=== PATIENT | male | born 1945 | race Two or more races ===

== ENCOUNTER 2023-06-26 01:22 | Inpatient (IN) | payer OTHER ==
[2023-06-26] VITALS (7 sets, daily range): BP systolic 129–154; BP diastolic 86–92; TEMP 97–98.4; O2SAT 96–100
[~2023-06-26] VITALS: Ht 170.2 cm; Wt 59.0 kg
[2023-06-26] MEDS ORDERED: IV NS 0.9% 1,000 ML BAG IV ONE (01:30)
[2023-06-26 02:05] LABS: BASOPHILS % (AUTO) 0.3 % (0.0-2.0); HEMATOCRIT 41 % (39-51); HEMOGLOBIN 13.3 g/dL (13.5-17.5); LYMPHOCYTES # (AUTO) 0.9 K/uL (0.8-4.8); LYMPHOCYTES % (AUTO) 14.1 % (20.0-44.0); MEAN CORPUSCULAR HEMOGLOBIN 31 PG (26.0-33.0); MEAN CORPUSCULAR HGB CONC 33 g/dl (31.0-36.0); MEAN CORPUSCULAR VOLUME 96 fL (80-96); MONOCYTES # (AUTO) 0.8 K/uL (0.1-1.30); MONOCYTES % (AUTO) 13.5 % (2.0-12.0); NEUTROPHILS # (AUTO) 4.4 K/uL (1.8-8.9); NEUTROPHILS % (AUTO) 72.1 % (43.0-81.0); PLATELET COUNT (AUTO) 127 K/uL (150-450); RED BLOOD CELL COUNT(AUTO) 4.24 MIL/uL (4.5-6.0); WHITE BLOOD COUNT (AUTO) 6.1 K/uL (4.3-11.0)
[2023-06-26 02:27] LABS: ERYTHROCYTE SEDIMENTATION RATE 14 MM/HR (0-20)
[2023-06-26 02:29] LABS: CALCIUM, SERUM 8.5 mg/dL (8.5-10.1); CARBON DIOXIDE 34 mmol/L (21-32); CHLORIDE 103 mmol/L (98-107); CREATININE 0.9 mg/dL (0.6-1.3); GLUCOSE 123 mg/dL (74-106); POTASSIUM 3.8 mmol/L (3.5-5.1); SODIUM SERUM 141 mmol/L (136-145); UREA NITROGEN, BLOOD 20 mg/dL (7-18)
[2023-06-26 02:30] LABS: INR 1.06 (0.91-1.10); PROTHROMBIN TIME 11.2 SECS (9.2-11.1)
[2023-06-26 02:36] LABS: ALANINE AMINOTRANSFERASE 34 U/L (12-78); ALBUMIN 2.9 g/dL (3.4-5.0); ALKALINE PHOSPHATASE 66 U/L (46-116); ASPARTATE AMINOTRANSFERASE 24 U/L (15-37); BILIRUBIN,DIRECT 0.1 mg/dL (0.0-0.2); BILIRUBIN,TOTAL 0.3 mg/dL (0.2-1.0); TOTAL PROTEIN, SERUM 6.7 g/dL (6.4-8.2)
[2023-06-26 02:42] LABS: APPEARANCE,URINE CLEAR (CLEAR); BILIRUBIN,URINE NEGATIVE (NEGATIVE); BLOOD, URINE NEGATIVE Ery/uL (NEGATIVE); COLOR,URINE YELLOW (YELLOW); KETONES,URINE NEGATIVE (NEGATIVE); LEUKOCYTE ESTERASE ,URINE NEGATIVE (NEGATIVE); NITRITE, URINE NEGATIVE (NEGATIVE); PROTEIN,URINE 3+ mg/dl (NEGATIVE); UGLUCOSE NEGATIVE (NEGATIVE)
[2023-06-26] MEDS ORDERED: ONDANSETRON HCL/PF 4 MG/2 ML VIAL IVP PRN (04:00)
[2023-06-26] MEDS ORDERED: Z GUARD REMEDY 4 OZ OINT TP PRN (04:00)
[2023-06-26] MEDS ORDERED: MAGNESIUM HYDROXIDE 30 ML UDC PO PRN (04:00)
[2023-06-26] MEDS ORDERED: CEFTRIAXONE 1GM BAG (ER ONLY) 1 GM/50 ML PIGGYBACK IV ONE (04:00)
[2023-06-26] MEDS ORDERED: MAG HYDROX/AL HYDROX/SIMETH 30 ML UDC PO PRN (04:00)
[2023-06-26] MEDS ORDERED: ACETAMINOPHEN 325 MG TABLET PO PRN (04:00)
[2023-06-26] MEDS ORDERED: AZITHROMYCIN 500 MG in IV D5W 250 ML IV ONE (04:00)
[2023-06-26] MEDS ORDERED: CEFTRIAXONE 1GM BAG (ER ONLY) 50 ML IV ONE (04:28)
[2023-06-26] MEDS ORDERED: AZITHROMYCIN 500 MG VIAL ONE (05:02)
[2023-06-26] MEDS: IV NS 0.9% 1,000 ML IV PRN (06:14)
[2023-06-26] MEDS: ENOXAPARIN SODIUM 40 MG/0.4 ML DISP.SYRIN SQ SCH (08:27)
[2023-06-26 09:46] LABS: ABG BASE EXCESS 4.8 mmol/L; ABG OXYGEN SATURATION 95.6 % (92.0-98.5); ABG PCO2 61.1 mmHg (35.0-45.0); ABG PH 7.341 (7.350-7.450); ABG PO2 86.1 mmHg (75.0-100.0); ABG TOTAL HEMOGLOBIN 13.3 G/dL (13.5-18.0); AaDO2 70.6 mmHg; COHb 1.1 % (0.5-1.5); MetHb 0.2 % (0.0-1.5); O2Hb 94.4 % (94.0-97.0); SITE, ABG Right Radial; VENT MODE, BG NC 3LPM
[2023-06-26] MEDS: ALBUTEROL HALF STRENGTH 1.25 MG/3 ML VIAL.NEB NEB SCH ×4 (11:30→23:47)
[2023-06-26] MEDS: IPRATROPIUM NEB FS 0.5 MG/2.5 ML AMPUL.NEB NEB SCH ×4 (11:30→23:47)
[2023-06-26] MEDS ORDERED: ASCO-352 PO (14:15)
[2023-06-26] MEDS ORDERED: OLME40TA18 PO (14:15)
[2023-06-26] MEDS ORDERED: SERT100T12 PO (14:15)
[2023-06-26] MEDS ORDERED: ROSU10TA29 PO (14:15)
[2023-06-26] MEDS ORDERED: MEMA10TA PO (14:15)
[2023-06-26] MEDS ORDERED: FERR325T23 PO (14:15)
[2023-06-26] MEDS ORDERED: DIVA500T4 PO (14:15)
[2023-06-26] MEDS ORDERED: OLAN5TAB6 PO (14:15)
[2023-06-26] MEDS ORDERED: DEXL60CA3 PO (14:15)
[2023-06-26] MEDS ORDERED: FISH1CAP16 PO (14:15)
[2023-06-26] MEDS ORDERED: CLON0.2T PO (14:15)
[2023-06-26] MEDS ORDERED: DONE10TA44 PO (14:15)
[2023-06-26] MEDS ORDERED: CARV25TA2 PO (14:15)
[2023-06-26] MEDS ORDERED: METF-440 PO (14:15)
[2023-06-26] MEDS ORDERED: MEGE40TA5 PO (14:15)
[2023-06-26] MEDS ORDERED: CYAN-51 PO (14:15)
[2023-06-26] MEDS: DONEPEZIL 5 MG TABLET PO SCH (15:16)
[2023-06-26] MEDS: ENSURE ENLIVE CHOC 237 ML CAN PO SCH ×2 (15:16→16:03)
[2023-06-26] MEDS ORDERED: CYANOCOBALAMIN 500 MCG TABLET PO SCH ×2 (15:30→18:00)
[2023-06-26] MEDS: LOSARTAN POTASSIUM 50 MG TABLET PO SCH (16:19)
[2023-06-26] MEDS ORDERED: FERROUS SULFATE (325 MG) 325 MG/TAB TABLET PO SCH (17:00)
[2023-06-26] MEDS: DIVALPROEX SODIUM 500 MG TABLET.DR PO SCH (17:03)
[2023-06-26] MEDS: MEMANTINE HCL 5 MG TABLET PO SCH (17:05)
[2023-06-26] MEDS: MEGESTROL ACETATE 40 MG TABLET PO SCH (17:05)
[2023-06-26] MEDS: OLANZAPINE ZYDIS 5 MG TAB.RAPDIS PO SCH (17:05)
[2023-06-26] MEDS ORDERED: ATORVASTATIN 40 MG TABLET PO SCH (18:00)
[2023-06-26] MEDS: CLONIDINE HCL 0.1 MG TABLET PO SCH (21:48)
[2023-06-27] VITALS (13 sets, daily range): BP systolic 103–167; BP diastolic 78–98; TEMP 97.1–98; O2SAT 90–99
[2023-06-27] MEDS: IV NS 0.9% 1,000 ML IV PRN (00:44)
[2023-06-27] MEDS: IPRATROPIUM NEB FS 0.5 MG/2.5 ML AMPUL.NEB NEB SCH ×5 (03:46→20:23)
[2023-06-27] MEDS: ALBUTEROL HALF STRENGTH 1.25 MG/3 ML VIAL.NEB NEB SCH ×5 (03:46→20:23)
[2023-06-27 07:44] LABS: BASOPHILS % (AUTO) 0.2 % (0.0-2.0); EOSINOPHILS # (AUTO) 0.1 K/uL (0.0-0.7); EOSINOPHILS % (AUTO) 1.1 % (0.0-6.0); HEMATOCRIT 40 % (39-51); HEMOGLOBIN 13.4 g/dL (13.5-17.5); LYMPHOCYTES % (AUTO) 20.8 % (20.0-44.0); MEAN CORPUSCULAR HEMOGLOBIN 32 PG (26.0-33.0); MEAN CORPUSCULAR HGB CONC 33 g/dl (31.0-36.0); MEAN CORPUSCULAR VOLUME 96 fL (80-96); MONOCYTES # (AUTO) 0.6 K/uL (0.1-1.30); MONOCYTES % (AUTO) 12.1 % (2.0-12.0); NEUTROPHILS % (AUTO) 65.8 % (43.0-81.0); PLATELET COUNT (AUTO) 118 K/uL (150-450); RED BLOOD CELL COUNT(AUTO) 4.22 MIL/uL (4.5-6.0); RED CELL DISTRIBUTION WIDTH 13.5 % (11.5-15.0); WHITE BLOOD COUNT (AUTO) 4.6 K/uL (4.3-11.0)
[2023-06-27] MEDS: CEFTRIAXONE 1 G in IV D5W 50 ML IV SCH (08:03)
[2023-06-27] MEDS: AZITHROMYCIN 500 MG in IV D5W 250 ML IV SCH (08:03)
[2023-06-27] MEDS: ENSURE ENLIVE CHOC 237 ML CAN PO SCH ×2 (08:03→16:25)
[2023-06-27] MEDS: SERTRALINE HCL 50 MG TABLET PO SCH (08:09)
[2023-06-27] MEDS: MEGESTROL ACETATE 40 MG TABLET PO SCH ×2 (08:09→16:25)
[2023-06-27] MEDS: MEMANTINE HCL 5 MG TABLET PO SCH ×2 (08:09→16:25)
[2023-06-27] MEDS: ASCORBIC ACID 500 MG TABLET PO SCH (08:10)
[2023-06-27] MEDS: ENOXAPARIN SODIUM 40 MG/0.4 ML DISP.SYRIN SQ SCH (08:12)
[2023-06-27] MEDS: CLONIDINE HCL 0.1 MG TABLET PO SCH ×2 (08:13→21:22)
[2023-06-27] MEDS: LOSARTAN POTASSIUM 50 MG TABLET PO SCH (08:13)
[2023-06-27 08:34] LABS: CALCIUM, SERUM 8.7 mg/dL (8.5-10.1); CREATININE 0.6 mg/dL (0.6-1.3); PHOSPHORUS 2.8 mg/dL (2.5-4.9); POTASSIUM 3.4 mmol/L (3.5-5.1)
[2023-06-27 09:04] LABS: ABG BASE EXCESS 7.9 mmol/L; ABG OXYGEN SATURATION 93.9 % (92.0-98.5); ABG PCO2 59.6 mmHg (35.0-45.0); ABG PH 7.386 (7.350-7.450); ABG PO2 71.5 mmHg (75.0-100.0); ABG TOTAL HEMOGLOBIN 13.7 G/dL (13.5-18.0); AaDO2 57.8 mmHg; COHb 0.7 % (0.5-1.5); MetHb 0.1 % (0.0-1.5); O2Hb 93.1 % (94.0-97.0); SITE, ABG Right Radial; VENT MODE, BG 2L NC
[2023-06-27] MEDS ORDERED: POTASSIUM CHLORIDE 20 MEQ POWDER PACKET PO SCH (10:00)
[2023-06-27] MEDS: DIVALPROEX SODIUM 500 MG TABLET.DR PO SCH (17:03)
[2023-06-27] MEDS: OLANZAPINE ZYDIS 5 MG TAB.RAPDIS PO SCH (17:03)
[2023-06-28] VITALS (14 sets, daily range): BP systolic 127–183; BP diastolic 88–102; TEMP 97.8–99.2; O2SAT 89–100
[2023-06-28] MEDS: ALBUTEROL HALF STRENGTH 1.25 MG/3 ML VIAL.NEB NEB SCH ×7 (00:06→22:55)
[2023-06-28] MEDS: IPRATROPIUM NEB FS 0.5 MG/2.5 ML AMPUL.NEB NEB SCH ×7 (00:06→22:55)
[2023-06-28 08:13] LABS: BASOPHILS % (AUTO) 0.2 % (0.0-2.0); EOSINOPHILS # (AUTO) 0.1 K/uL (0.0-0.7); HEMATOCRIT 41 % (39-51); HEMOGLOBIN 13.6 g/dL (13.5-17.5); LYMPHOCYTES # (AUTO) 0.7 K/uL (0.8-4.8); LYMPHOCYTES % (AUTO) 20.1 % (20.0-44.0); MEAN CORPUSCULAR HEMOGLOBIN 31 PG (26.0-33.0); MEAN CORPUSCULAR HGB CONC 33 g/dl (31.0-36.0); MEAN CORPUSCULAR VOLUME 95 fL (80-96); MONOCYTES # (AUTO) 0.5 K/uL (0.1-1.30); MONOCYTES % (AUTO) 12.7 % (2.0-12.0); NEUTROPHILS # (AUTO) 2.4 K/uL (1.8-8.9); PLATELET COUNT (AUTO) 113 K/uL (150-450); RED BLOOD CELL COUNT(AUTO) 4.34 MIL/uL (4.5-6.0); RED CELL DISTRIBUTION WIDTH 13.5 % (11.5-15.0); WHITE BLOOD COUNT (AUTO) 3.7 K/uL (4.3-11.0)
[2023-06-28 08:30] LABS: CALCIUM, SERUM 8.6 mg/dL (8.5-10.1); CREATININE 0.6 mg/dL (0.6-1.3); MAGNESIUM 1.6 mg/dL (1.8-2.4); PHOSPHORUS 2.6 mg/dL (2.5-4.9); POTASSIUM 2.9 mmol/L (3.5-5.1)
[2023-06-28] MEDS: MEGESTROL ACETATE 40 MG TABLET PO SCH ×2 (08:30→17:03)
[2023-06-28] MEDS: LOSARTAN POTASSIUM 50 MG TABLET PO SCH (08:30)
[2023-06-28] MEDS: ASCORBIC ACID 500 MG TABLET PO SCH (08:30)
[2023-06-28] MEDS: SERTRALINE HCL 50 MG TABLET PO SCH (08:30)
[2023-06-28] MEDS: MEMANTINE HCL 5 MG TABLET PO SCH ×2 (08:30→17:03)
[2023-06-28] MEDS: ENSURE ENLIVE CHOC 237 ML CAN PO SCH ×2 (08:31→17:01)
[2023-06-28] MEDS: CEFTRIAXONE 1 G in IV D5W 50 ML IV SCH (08:31)
[2023-06-28] MEDS: CLONIDINE HCL 0.1 MG TABLET PO SCH ×2 (08:31→21:39)
[2023-06-28] MEDS: ENOXAPARIN SODIUM 40 MG/0.4 ML DISP.SYRIN SQ SCH (08:44)
[2023-06-28] MEDS: AZITHROMYCIN 500 MG in IV D5W 250 ML IV SCH (09:33)
[2023-06-28] MEDS: POTASSIUM CHLORIDE 20 MEQ TAB.PRT.SR PO SCH ×5 (10:01→15:12)
[2023-06-28] MEDS ORDERED: MAGNESIUM OXIDE 400 MG TABLET PO ONE (10:30)
[2023-06-28] MEDS: DONEPEZIL 5 MG TABLET PO SCH (15:10)
[2023-06-28] MEDS ORDERED: POTASSIUM CHLORIDE 20 MEQ TAB.PRT.SR PO SCH (16:00)
[2023-06-28] MEDS: OLANZAPINE ZYDIS 5 MG TAB.RAPDIS PO SCH (17:04)
[2023-06-28] MEDS: DIVALPROEX SODIUM 500 MG TABLET.DR PO SCH (17:05)
[2023-06-29] VITALS (12 sets, daily range): BP systolic 100–169; BP diastolic 81–116; TEMP 97.9–98.4; O2SAT 90–99
[2023-06-29] MEDS: IPRATROPIUM NEB FS 0.5 MG/2.5 ML AMPUL.NEB NEB SCH ×4 (03:36→17:14)
[2023-06-29] MEDS: ALBUTEROL HALF STRENGTH 1.25 MG/3 ML VIAL.NEB NEB SCH ×4 (03:36→17:15)
[2023-06-29 07:01] LABS: BASOPHILS % (AUTO) 0.2 % (0.0-2.0); EOSINOPHILS # (AUTO) 0.1 K/uL (0.0-0.7); EOSINOPHILS % (AUTO) 1.6 % (0.0-6.0); HEMATOCRIT 40 % (39-51); HEMOGLOBIN 13.4 g/dL (13.5-17.5); LYMPHOCYTES % (AUTO) 21.7 % (20.0-44.0); MEAN CORPUSCULAR HEMOGLOBIN 32 PG (26.0-33.0); MEAN CORPUSCULAR HGB CONC 33 g/dl (31.0-36.0); MEAN CORPUSCULAR VOLUME 96 fL (80-96); MONOCYTES # (AUTO) 0.7 K/uL (0.1-1.30); MONOCYTES % (AUTO) 14.9 % (2.0-12.0); NEUTROPHILS # (AUTO) 2.9 K/uL (1.8-8.9); NEUTROPHILS % (AUTO) 61.6 % (43.0-81.0); PLATELET COUNT (AUTO) 114 K/uL (150-450); RED BLOOD CELL COUNT(AUTO) 4.19 MIL/uL (4.5-6.0); RED CELL DISTRIBUTION WIDTH 13.6 % (11.5-15.0); WHITE BLOOD COUNT (AUTO) 4.6 K/uL (4.3-11.0)
[2023-06-29 08:02] LABS: CREATININE 0.6 mg/dL (0.6-1.3)
[2023-06-29] MEDS: ENSURE ENLIVE CHOC 237 ML CAN PO SCH (09:02)
[2023-06-29] MEDS: AZITHROMYCIN 500 MG in IV D5W 250 ML IV SCH (09:02)
[2023-06-29] MEDS: CEFTRIAXONE 1 G in IV D5W 50 ML IV SCH (09:02)
[2023-06-29] MEDS: MEGESTROL ACETATE 40 MG TABLET PO SCH (09:03)
[2023-06-29] MEDS: SERTRALINE HCL 50 MG TABLET PO SCH (09:04)
[2023-06-29] MEDS: LOSARTAN POTASSIUM 50 MG TABLET PO SCH (09:05)
[2023-06-29] MEDS: CLONIDINE HCL 0.1 MG TABLET PO SCH (09:06)
[2023-06-29] MEDS: ASCORBIC ACID 500 MG TABLET PO SCH (09:06)
[2023-06-29] MEDS: MEMANTINE HCL 5 MG TABLET PO SCH (09:08)
[2023-06-29] MEDS: ENOXAPARIN SODIUM 40 MG/0.4 ML DISP.SYRIN SQ SCH (09:51)
[2023-06-29] MEDS ORDERED: CLONIDINE HCL 0.1 MG TABLET PO PRN (11:00)
[2023-06-29] MEDS ORDERED: AZIT500T4 PO (11:01)
[2023-06-30] MEDS ORDERED: AZITHROMYCIN 250 MG TABLET PO SCH (09:00)
== END 2023-06-29 17:48 | disposition home health service (06) | DRG 193 ==
LOC: ER 01:24 → TELE1 04:15
PROVIDERS: ADMIT Nurse Practitioner Acute Care; ATTEND Internal Medicine
DX: J12.1 Respiratory syncytial virus pneumonia (principal); G92.8 Other toxic encephalopathy; J96.01 Acute respiratory failure with hypoxia; J96.02 Acute respiratory failure with hypercapnia; J44.0 Chronic obstructive pulmonary disease with (acute) lower respiratory infection; J44.1 Chronic obstructive pulmonary disease with (acute) exacerbation; F02.83 Dementia in other diseases classified elsewhere, unspecified severity, with mood disturbance; E44.0 Moderate protein-calorie malnutrition; I50.30 Unspecified diastolic (congestive) heart failure; I11.0 Hypertensive heart disease with heart failure; J15.9 Unspecified bacterial pneumonia; E11.9 Type 2 diabetes mellitus without complications; E78.5 Hyperlipidemia, unspecified; E86.0 Dehydration; E88.09 Other disorders of plasma-protein metabolism, not elsewhere classified; F32.A Depression, unspecified; G30.9 Alzheimer's disease, unspecified; Z87.891 Personal history of nicotine dependence; Z20.822 Contact with and (suspected) exposure to COVID-19; R53.1 Weakness; Z68.20 Body mass index [BMI] 20.0-20.9, adult; E87.6 Hypokalemia; E83.42 Hypomagnesemia
CPT/HCPCS: 36415; 36600; 70450-TC; 71045-TC; 80048-TC; 80061-TC; 80076-TC; 82803-TC; 83605-TC; 83735-TC; 83880; 84100-TC; 84484-TC; 85025-TC; 85652-TC; 85730-TC; 87040-TC; 87086-TC; 93307-TC; 94660; 94799-TC; 97110-TC; 97116-TC; 97530-TC; 97535-TC; A4223; C9803; G0378; J0456; J0696; J1650; J7030; J7060